=== PATIENT | female | born 1935 | race Two or more races ===

== ENCOUNTER 2021-07-01 07:15 | Inpatient (IN) | payer OTHER ==
[~2021-07-01] VITALS: Ht 154.9 cm; Wt 65.8 kg
[2021-07-01] MEDS ORDERED: LEVO-T50 MCG PO (09:21)
[2021-07-01] MEDS ORDERED: SIMVASTATIN40 MG PO (09:21)
[2021-07-01] MEDS ORDERED: METFORMIN HCL500 M3 PO (09:21)
[2021-07-01] MEDS ORDERED: DILTIAZEM ER120 M2 PO (09:22)
[2021-07-01] MEDS ORDERED: ADULT LOW DOSE81 M1 PO (09:22)
[2021-07-05] MEDS ORDERED: ENOXAPARIN30 MG/0.3 (08:28)
[2021-07-05] MEDS ORDERED: CODE1TAB37 (08:29)
[2021-07-05] MEDS ORDERED: BACLOFEN10 MG (08:29)
[2021-07-05] MEDS ORDERED: COUGH (08:29)
[2021-07-05] MEDS ORDERED: CENTRUM SILVER1 EAC3 (08:29)
[2021-07-05] MEDS ORDERED: VICKS VAPORUB170 G2 (08:30)
[2021-07-05] MEDS ORDERED: REFRESH OPTIVE1 EACH (08:30)
[2021-07-05] MEDS ORDERED: CLARITIN10 MG (08:30)
[2021-07-05] MEDS ORDERED: DILTIAZEM 24HR180 MG (08:32)
[2021-07-06] MEDS ORDERED: OXYC1TAB9 PO (06:17)
[2021-07-06] MEDS ORDERED: INTEGRA PLUS C1 EACH PO (06:17)
[2021-07-06] MEDS ORDERED: XARELTO10 MG PO (06:17)
[2021-07-06] MEDS ORDERED: BACTRIM DS TAB1 EACH PO (06:17)
== END 2021-07-06 13:30 | DRG 522 ==
LOC: SURH 07-04 07:15 → SURG 07-04 11:40 → O/R 07-04 11:40 → SURH 07-04 14:30 → SURG 07-04 18:51
PROVIDERS: ADMIT Orthopaedic Surgery Sports Medicine; ATTEND Orthopaedic Surgery Sports Medicine
PROC: 3E0F7SF Introduction of Other Gas into Respiratory Tract, Via Natural or Artificial Opening (ICD-10-PCS; 2021-07-04)
PROC: 0SRS019 Replacement of Left Hip Joint, Femoral Surface with Metal Synthetic Substitute, Cemented, Open Approach (ICD-10-PCS; principal; 2021-07-04 14:30)
DX: S72.002A Fracture of unspecified part of neck of left femur, initial encounter for closed fracture (principal); W19.XXXA Unspecified fall, initial encounter; Y93.89 Activity, other specified; Y92.89 Other specified places as the place of occurrence of the external cause; Y99.8 Other external cause status; Z20.822 Contact with and (suspected) exposure to COVID-19

== ENCOUNTER 2021-07-01 09:28 | Outpatient (CLI) | payer OTHER ==
[~2021-07-01 09:28] MED LIST: ADULT LOW DOSE81 M1 PO; DILTIAZEM ER120 M2 PO; LEVO-T50 MCG PO; METFORMIN HCL500 M3 PO; SIMVASTATIN40 MG PO
== END 2021-07-01 09:37 | disposition home or self-care (01) ==
LOC: TOM 09:28
PROVIDERS: ATTEND Orthopaedic Surgery Sports Medicine
DX: S72.002A Fracture of unspecified part of neck of left femur, initial encounter for closed fracture (principal)